=== PATIENT | female | born 1945 ===

== ENCOUNTER → 2017-01-26 | Outpatient (CLI) | payer MEDICARE ==
--- NOTE | 2017-01-26 15:24 | BD ---
EXAMINATION TYPE: MG DEXA axial skeleton. DATE OF EXAM: 01/26/2017 1:39 PM COMPARISON: NONE CLINICAL HISTORY: 71-year-old female screening for osteoporosis Height: 61.5 IN Weight: 113 LBS FRAX RISK QUESTIONS: Alcohol (3 or more units per day): NO Family History (Parent hip fracture): NO Glucocorticoids (More than 3mos): NO (Ex: prednisone, prednisolone, methylprednisolone, dexamethasone, and hydrocortisone). History of Fracture in Adulthood: NO Secondary Osteoporosis: 1. Type 1 Diabetes: NO 2. Hyperthyroidism: NO 3. Menopause before 45: NO 4. Malnutrition: NO 5. Chronic liver disease: NO Rheumatoid Arthritis: NO Current Tobacco Use: NO RISK FACTORS HISTORY OF: Active: YES Diet low in dairy products/other sources of calcium: YES Postmenopausal woman: AGE 51 : MEDICATIONS: Additional Medications: HIGH BLOOD PRESSURE MEDS, CALCIUM WITH D EXAM MEASUREMENTS: Bone mineral densitometry was performed using the [employer] System. Bone mineral density as measured about the Lumbar spine is: ----- L1-L4(G/cm2): 1.189 T Score Values are as follows: ----- L2: -0.1 ----- L3: 1.0 ----- L4: 0.3 ----- L1-L4: 0.1 Bone mineral density has: Increased 2.0% since study of: 01/16/2015 Bone mineral density about the R hip (g/cm2): 0.640 Bone mineral density about the L hip (g/cm2): 0.759 T Score values are as follows: -----R Neck: -2.9 -----L Neck: -2.0 -----R Intertrochanter: -1.4 -----L Intertrochanter: -2.2 Bone mineral density has: Decreased -1.4% since study of: 01/16/2015 IMPRESSION: Osteoporosis as indicated by T score values in the right hip. There is increased fracture risk and therapy is usually indicated based on age. Re-Screen 1-2 years. NOTE: T-SCORE=SD OF THE YOUNG ADULT MEAN.
--- NOTE | 2017-01-27 13:55 | MM ---
Reason for exam: screening (asymptomatic). Last mammogram was performed 1 year ago. History: Patient is postmenopausal and had first child at age 36. Physical Findings: A clinical breast exam by your physician is recommended on an annual basis and results should be correlated with mammographic findings. MG 3D Screening Mammo W/Cad Bilateral CC and MLO view(s) were taken. Prior study comparison: January 21, 2016, bilateral MG screening mammo w CAD. The breast tissue is heterogeneously dense. This may lower the sensitivity of mammography. No significant changes when compared with prior studies. ASSESSMENT: Benign, BI-RAD 2 RECOMMENDATION: Routine screening mammogram of both breasts in 1 year.
== END | disposition home or self-care (01) ==
LOC: RADMAMWWP 13:35
PROVIDERS: ATTEND Family Medicine
DX: Z12.31 Encounter for screening mammogram for malignant neoplasm of breast (principal); Z13.820 Encounter for screening for osteoporosis; M81.0 Age-related osteoporosis without current pathological fracture
CPT/HCPCS: 77080; 77063; G0202

== ENCOUNTER → 2018-03-22 | Outpatient (CLI) | payer MEDICARE ==
--- NOTE | 2018-03-23 10:04 | MM ---
Reason for exam: screening (asymptomatic). Last mammogram was performed 1 year and 2 months ago. History: Patient is postmenopausal and had first child at age 36. Physical Findings: A clinical breast exam by your physician is recommended on an annual basis and results should be correlated with mammographic findings. MG 3D Screening Mammo W/Cad Bilateral CC and MLO view(s) were taken. Prior study comparison: January 26, 2017, bilateral MG 3d screening mammo w/cad. January 21, 2016, bilateral MG screening mammo w CAD. The breast tissue is extremely dense which could obscure a lesion on mammography. Benign calcifications. No significant changes when compared with prior studies. ASSESSMENT: Benign, BI-RAD 2 RECOMMENDATION: Routine screening mammogram of both breasts in 1 year.
== END | disposition home or self-care (01) ==
LOC: RADMAMWWP 12:27
PROVIDERS: ATTEND Family Medicine
DX: Z12.31 Encounter for screening mammogram for malignant neoplasm of breast (principal)
CPT/HCPCS: 77063; 77067

== ENCOUNTER → 2019-04-11 | Outpatient (CLI) | payer MEDICARE, OTHER ==
--- NOTE | 2019-04-11 15:28 | BD ---
EXAMINATION TYPE: Axial Bone Density DATE OF EXAM: 04/11/2019 COMPARISON: 01/26/2017 CLINICAL HISTORY: Postmenopausal female. Osteoporosis screening. Height: 62 Weight: 111 FRAX RISK QUESTIONS: Alcohol (3 or more units per day): no Family History (Parent hip fracture): no Glucocorticoids (More than 3mos): no (Ex: prednisone, prednisolone, methylprednisolone, dexamethasone, and hydrocortisone). History of Fracture in Adulthood: no Secondary Osteoporosis: 1. Type 1 Diabetes: no 2. Hyperthyroidism: no 3. Menopause before 45: no 4. Malnutrition: no 5. Chronic liver disease: no Rheumatoid Arthritis: no Current Tobacco Use: no RISK FACTORS HISTORY OF: Family History of Osteoporosis: unsure Active: yes Diet low in dairy products/other sources of calcium: at least one serving a day Postmenopausal woman: yes Take estrogen and/or progesterone medications: no Lost more than 2 inches in height since high school: unsure Frequent falls: no Poor Health: no Hyperparathyroidism: no Adrenal Insufficiency: no MEDICATIONS: Prednisone or other steroids: no Thyroid Medications: no Osteoporosis Medications:no Additional Medications: blood pressure med Additional History: EXAM MEASUREMENTS: Bone mineral densitometry was performed using the [employer] System. Bone mineral density as measured about the Lumbar spine is: ----- L1-L4(G/cm2): 1.187 T Score Values are as follows: ----- L2: -0.4 ----- L3: 0.8 ----- L4: 0.3 ----- L1-L4: 0.1 Bone mineral density has: Decreased -1.4% since study of: 01/26/2017 Bone mineral density about the R hip (g/cm2): 0.630 Bone mineral density about the L hip (g/cm2): 0.750 T Score values are as follows: -----R Neck: -2.9 -----L Neck: -2.1 -----R Total: -2.3 -----L Total: -2.0 Bone mineral density has: Decreased -3.8% since study of: 01/26/2017 IMPRESSION: Osteoporosis (T Score less than -2.5). There is increased fracture risk and therapy is usually indicated based on age. Re-Screen 1-2 years. NOTE: T-SCORE=SD OF THE YOUNG ADULT MEAN.
--- NOTE | 2019-04-13 08:06 | MM ---
Reason for exam: screening (asymptomatic). Last mammogram was performed 1 year and 1 month ago. History: Patient is postmenopausal and had first child at age 36. Physical Findings: A clinical breast exam by your physician is recommended on an annual basis and results should be correlated with mammographic findings. MG 3D Screening Mammo W/Cad Bilateral CC and MLO view(s) were taken. Prior study comparison: March 22, 2018, bilateral MG 3d screening mammo w/cad. January 26, 2017, bilateral MG 3d screening mammo w/cad. The breast tissue is heterogeneously dense. This may lower the sensitivity of mammography. No significant changes when compared with prior studies. ASSESSMENT: Negative, BI-RAD 1 RECOMMENDATION: Routine screening mammogram of both breasts in 1 year.
== END | disposition home or self-care (01) ==
LOC: RADMAMWWP 13:25
PROVIDERS: ATTEND Family Medicine
DX: Z12.31 Encounter for screening mammogram for malignant neoplasm of breast (principal); M81.0 Age-related osteoporosis without current pathological fracture
CPT/HCPCS: 77063; 77067; 77080

== ENCOUNTER → 2019-09-19 | Outpatient (CLI) | payer MEDICARE, OTHER ==
[~2019-09-19] MED LIST: DENOSUMAB 60 MG/ML 1 ML SYRINGE SQ NR; SODIUM CHLORIDE 0.9% 500 ML 500 ML in EMPTY BAG 1 BAG IV PRN
[2019-09-19 14:17] VITALS: BP 154/77; PULSE 83; RESP 16; TEMP 98.2
== END ==
LOC: PROCWHC3 13:42
PROVIDERS: ATTEND Family Medicine
DX: M81.0 Age-related osteoporosis without current pathological fracture (principal)
CPT/HCPCS: 96372; J0897

== ENCOUNTER → 2021-03-29 | Outpatient (CLI) | payer MEDICARE ==
[~2021-03-29] MED LIST changes: -SODIUM CHLORIDE 0.9% 500 ML 500 ML in EMPTY BAG 1 BAG IV PRN
[2021-03-29 11:04] VITALS: BP 173/81; PULSE 80; RESP 16; TEMP 98.5
== END ==
LOC: PROCWHC3 10:49
PROVIDERS: ATTEND Family Medicine
DX: M81.0 Age-related osteoporosis without current pathological fracture (principal)
CPT/HCPCS: 96372; J0897

== ENCOUNTER → 2022-05-16 | Outpatient (CLI) | payer MEDICARE ==
--- NOTE | 2022-05-19 07:25 | BD ---
EXAMINATION TYPE: Axial Bone Density DATE OF EXAM: 05/16/2022 COMPARISON: NONE CLINICAL HISTORY: 77 years year old Female. ICD-10 CODE: M89.9 DISORDER OF BONE Height: 61.5 Weight: 111.1 FRAX RISK QUESTIONS: Alcohol (3 or more units per day): no Family History (Parent hip fracture): no Glucocorticoids (More than 3mos): no (Ex: prednisone, prednisolone, methylprednisolone, dexamethasone, and hydrocortisone). History of Fracture in Adulthood: no Secondary Osteoporosis: 1. Type 1 Diabetes: no 2. Hyperthyroidism: no 3. Menopause before 45: no 4. Malnutrition: no 5. Chronic liver disease: no Rheumatoid Arthritis: no Current Tobacco Use: no RISK FACTORS HISTORY OF: Surgery to Spine/Hip(right/left)/Wrist (right/left): no Family History of Osteoporosis: no Active: yes Postmenopausal woman: yes Lost more than 2 inches in height since high school: no MEDICATIONS: Additional History: EXAM MEASUREMENTS: Bone mineral densitometry was performed using the [employer] System. Bone mineral density as measured about the Lumbar spine is: ----- L1-L4(G/cm2): 1.171 T Score Values are as follows: ----- L1: -0.8 ----- L2: -0.8 ----- L3: 0.5 ----- L4: 0.3 ----- L1-L4: -0.1 Bone mineral density has: decreased -3.4 % since study of: 01.26.2017 Bone mineral density about the R hip (g/cm2): 0.653 Bone mineral density about the L hip (g/cm2): 0.815 T Score values are as follows: -----R Neck: -2.8 -----L Neck: -1.6 -----R Total: -2.3 -----L Total: -1.9 Bone mineral density has: decreased -2.5 % since study of: 01.26.2017 FRAX%s: The graph provided illustrates a 11.2% chance for a major osteoporotic fx and a 4.2% chance f or the hips probability for fx in 10 years time. IMPRESSION: Osteoporosis (T Score less than -2.5). There is increased fracture risk and therapy is usually indicated based on age. Re-Screen 1-2 years. NOTE: T-SCORE=SD OF THE YOUNG ADULT MEAN.
== END | disposition home or self-care (01) ==
LOC: RADBDWWP 14:54
PROVIDERS: ATTEND Family Medicine
DX: M85.89 Other specified disorders of bone density and structure, multiple sites (principal)
CPT/HCPCS: 77080

== ENCOUNTER → 2022-06-20 | Outpatient (CLI) | payer MEDICARE ==
[2022-06-20 09:29] VITALS: BP 157/76; PULSE 65; RESP 16; TEMP 97.9
== END ==
LOC: PROCWHC3 09:21
PROVIDERS: ATTEND Family Medicine
DX: M81.0 Age-related osteoporosis without current pathological fracture (principal)
CPT/HCPCS: 96372; J0897

== ENCOUNTER → 2022-12-24 | Outpatient (CLI) | payer MEDICARE ==
[2022-12-24 13:55] VITALS: BP 139/82; PULSE 80; RESP 16; TEMP 97.7
== END ==
LOC: PROCWHC3 13:43
PROVIDERS: ATTEND Family Medicine
DX: M81.0 Age-related osteoporosis without current pathological fracture (principal)
CPT/HCPCS: 96372; J0897

== ENCOUNTER → 2023-06-29 | Outpatient (CLI) | payer MEDICARE ==
[2023-06-29 13:24] VITALS: BP 154/82; PULSE 75; RESP 16; TEMP 98
== END ==
LOC: PROCWHC3 13:05
PROVIDERS: ATTEND Family Medicine
DX: M81.0 Age-related osteoporosis without current pathological fracture (principal)
CPT/HCPCS: 96372; J0897

== ENCOUNTER → 2023-12-30 | Outpatient (CLI) | payer MEDICARE ==
[2023-12-30] MEDS: DENOSUMAB 60 MG/ML 1 ML SYRINGE SQ NR (13:07)
[2023-12-30 13:24] VITALS: BP 160/83; PULSE 92; RESP 14; TEMP 97.8
== END ==
LOC: PROCWHC3 12:55
PROVIDERS: ATTEND Family Medicine
DX: M81.0 Age-related osteoporosis without current pathological fracture (principal)
CPT/HCPCS: 96372; J0897

== ENCOUNTER → 2024-07-04 | Outpatient (CLI) | payer MEDICARE ==
[2024-07-04 13:43] VITALS: BP 155/79; PULSE 87; RESP 16; TEMP 98
[2024-07-04] MEDS: DENOSUMAB 60 MG/ML 1 ML SYRINGE SQ NR (13:43)
== END ==
LOC: PROCWHC3 13:03
PROVIDERS: ATTEND Family Medicine
DX: M81.0 Age-related osteoporosis without current pathological fracture (principal)
CPT/HCPCS: 96372; J0897

== ENCOUNTER → 2024-09-06 | Outpatient (CLI) | payer MEDICARE ==
--- NOTE | 2024-09-06 17:34 | BD ---
EXAMINATION TYPE: Axial Bone Density DATE OF EXAM: 09/06/2024 CLINICAL HISTORY: 79 years old Female. ICD-10 CODE: M89.9 DISORDER OF BONE , Additional History: Height: 61 Weight: 110 FRAX RISK QUESTIONS: Alcohol (3 or more units per day): no Family History (Parent hip fracture): no Glucocorticoids (More than 3mos): no (Ex: prednisone, prednisolone, methylprednisolone, dexamethasone, and hydrocortisone). History of Fracture in Adulthood: no Secondary Osteoporosis: 1. Type 1 Diabetes: no 2. Hyperthyroidism: no 3. Menopause before 45: no 4. Malnutrition: no 5. Chronic liver disease: no Rheumatoid Arthritis: no Current Tobacco Use: no RISK FACTORS HISTORY OF: Surgery to Spine/Hip(right/left)/Wrist (right/left): no EXAM MEASUREMENTS: Bone mineral densitometry was performed using the [employer] System. Bone mineral density as measured about the Lumbar spine is: ----- L1-L4(G/cm2): 1.165 T Score Values are as follows: ----- L1: -0.8 ----- L2: -0.6 ----- L3: 0.0 ----- L4: 0.5 ----- L1-L4: -0.1 Z Score Values are as follows: ----- L1: 1.5 ----- L2: 1.7 ----- L3: 2.3 ----- L4: 2.8 ----- L1-L4: 2.2 Bone mineral density has: decreased -0.5 % since study of: 05.16.2022 Bone mineral density about the R hip (g/cm2): 0.736 Bone mineral density about the L hip (g/cm2): 0.784 T Score values are as follows: -----R Neck: -2.8 -----L Neck: -1.5 -----R Total: -2.2 -----L Total: -1.8 Z Score values are as follows: -----R Neck: -0.4 -----L Neck: 0.9 -----R Total: 0.2 -----L Total: 0.5 Bone mineral density has: increased 2.3 % since study of: 5.2021 FRAX%s: The graph provided illustrates a 12.3% chance for a major osteoporotic fx and a 4.8% chance f or the hips probability for fx in 10 years time. IMPRESSION: Osteoporosis (T Score less than -2.5). There is increased fracture risk and therapy is usually indicated based on age. Re-Screen 1-2 years. NOTE: T-SCORE=SD OF THE YOUNG ADULT MEAN. [facility], , 09/06/2024 5:32 PM
== END | disposition home or self-care (01) ==
LOC: RADBDWWP 08:31
PROVIDERS: ATTEND Family Medicine
DX: M81.0 Age-related osteoporosis without current pathological fracture (principal); M89.9 Disorder of bone, unspecified
CPT/HCPCS: 77080

== ENCOUNTER → 2025-04-18 | Outpatient (CLI) | payer MEDICARE ==
[2025-04-18 13:17] VITALS: BP 146/82; PULSE 85; RESP 16; TEMP 98
[2025-04-18] MEDS: DENOSUMAB 60 MG/ML 1 ML SYRINGE SQ NR (13:18)
== END ==
LOC: PROCWHC3 12:45
PROVIDERS: ATTEND Family Medicine
DX: M81.0 Age-related osteoporosis without current pathological fracture (principal)
CPT/HCPCS: 96372; J0897